=== PATIENT | female | born 1970 | race American Indian/Alaskan Native ===

== ENCOUNTER 2019-04-16 09:50 | Outpatient (CLI) | payer BC | END 2019-04-16 09:51 | disposition home or self-care (01) | LOC: ECHO 09:50 | PROVIDERS: ATTEND Internal Medicine Cardiovascular Disease | DX: R94.31 Abnormal electrocardiogram [ECG] [EKG] (principal); I10 Essential (primary) hypertension | CPT/HCPCS: 93306 ==

== ENCOUNTER 2019-05-23 06:30 | Day surgery (SDC) | payer BC ==
[2019-05-23] MEDS ORDERED: SODIUM CHLORIDE 0.9% 500 ML 500 ML IV SCH (07:00)
[2019-05-23] MEDS ORDERED: ASPIRIN EC 325 MG TAB PO NR (07:00)
[2019-05-23 07:50] LABS: Basophils % (Auto) 0.5 % (0.0-1.8); Eosinophils # (Auto) 0.2 K/mm3 (0.0-0.4); Eosinophils % (Auto) 3.8 % (0.0-4.3); Hemoglobin 12.4 gm/dl (10.1-14.3); Lymphocytes # (Auto) 1.2 K/mm3 (1.2-5.4); Lymphocytes % (Auto) 25.2 % (13.4-35.0); Mean Corpuscular HGB Conc 34 % (30-34); Mean Corpuscular Volume 91 fl (79-97); Monocytes # (Auto) 0.3 K/mm3 (0.0-0.8); Platelet Count 223 K/mm3 (140-440); Red Blood Count 4.06 M/mm3 (3.65-5.03); Red Cell Distribution Width 14.4 % (13.2-15.2)
[2019-05-23 07:57] LABS: INR 1.01 (0.87-1.13)
[2019-05-23 08:00] LABS: BUN/Creatinine Ratio 27; Blood Urea Nitrogen 16 mg/dL (7-17); Calcium 9.1 mg/dL (8.4-10.2); Hemolysis Index 21
[2019-05-23] MEDS ORDERED: fentaNYL 100 MCG/2 ML INJ IV NR (08:34)
[2019-05-23] MEDS ORDERED: MIDAZOLAM 5 MG/5 ML INJ MDV IV NR (08:34)
[2019-05-23] MEDS ORDERED: BENZOCAINE 20% TOP SPRAY 0.5 ML UNIT DOSE MM NR (09:00)
[2019-05-23] MEDS ORDERED: HEPARIN/NS 5000 UNIT/500ML 1,000 ML IR ONE (09:43)
[2019-05-23] MEDS: fentaNYL 100 MCG/2 ML INJ ONE ×2 (10:43→10:53)
[2019-05-23] MEDS: MIDAZOLAM 2 MG/2 ML INJ ONE ×3 (10:43→10:57)
[2019-05-23] MEDS ORDERED: MIDAZOLAM 2 MG/2 ML INJ ONE ×2 (10:46→10:51)
[2019-05-23] MEDS: LIDOCAINE (2%) 20 MG/1 ML VIAL 20 ML MDV INFILTRATI ONE ×2 (11:05→11:28)
[2019-05-23] MEDS: NITROGLYCERIN SYRINGE 3 ML ONE ×2 (11:05→11:31)
[2019-05-23] MEDS: HEPARIN 10,000 UNITS/10 ML VIAL ONE ×2 (11:06→11:31)
[2019-05-23] MEDS: VERAPAMIL 5 MG/2 ML INJ ONE ×2 (11:06→11:31)
[2019-05-23] MEDS ORDERED: fentaNYL 100 MCG/2 ML INJ ONE (11:06)
--- NOTE | 2019-05-23 12:58 | Cardiac Catherization Report ---
ATTENDING PHYSICIAN: Guillermo Carmona MD. PROCEDURES: 1. Left heart catheterization. 2. Pullback pressure across the left ventricular outflow tract. 3. Right and left coronary angiography. REASON FOR PROCEDURE: The patient is a 49-year-old female with a history of hypertrophic cardiomyopathy with echocardiogram showing presence of systolic anterior motion of the mitral valve and a peak gradient of approximately 34 mmHg on echocardiogram. The patient was subsequently brought for cardiac catheterization for further evaluation of the LVOT gradient. COMPLICATIONS: None. ESTIMATED BLOOD LOSS: Less than 30 mL. ESTIMATED CONTRAST USED: 80 mL. PROCEDURE IN DETAIL: The patient was brought to the cardiac catheterization lab in the usual fasting state. The patient was prepped and draped in the usual sterile fashion. A 2 mL of 1% lidocaine was injected around the right radial artery and a 6-Icelandic sheath was placed via a modified Seldinger technique. Next, [place] catheter was advanced over the wire across the aortic valve into the left atria. Left ventricular pressures were measured. Left ventriculogram was performed via hand injection. Next, [place] catheter was removed over the wire and replaced with a multipurpose catheter. Next, pressure measurements were taken in the body of the left ventricle, the left ventricular outflow tract, and the aorta to determine presence of a gradient over the left ventricular outflow tract. Next, the multipurpose catheter was removed over the wire and a JR4 catheter was advanced over the wire and engaged into the right coronary artery. Angiography was performed in multiple views. The catheter was then removed over the wire and an EBU 3.0 guide catheter was advanced over the wire and engaged into the left main coronary artery. The angiography was performed in multiple views. The wire and catheter were subsequently then removed. RESULTS: Left ventriculogram shows an ejection fraction at 50% with no significant wall motion abnormalities. The end-diastolic pressure measured at 33 mmHg. The gradient across the left ventricular outflow tract was measured at 48 mmHg at a heart rate of 75. Gradient at peak inspiration was 36.1 mmHg. The left main coronary artery is a large caliber vessel that bifurcates into left anterior descending and left main coronary arteries. The left main coronary artery shows no significant disease. The left anterior descending coronary artery is a large caliber vessel that extends to the distal apex. The left anterior descending coronary artery shows no significant disease. The left circumflex coronary artery is a moderate caliber nondominant vessel that shows no significant disease. The right coronary artery is a large caliber dominant vessel that shows luminal irregularities throughout without significant stenosis. CONCLUSIONS: 1. Left ventricular outflow tract shows a [id number] gradient of 48 mmHg and inspiratory peak gradient of 36.1 mmHg at a heart rate of 75. 2. Right and left coronary arteries show no significant disease. 3. Left ventricular function shows a normal ejection fraction of approximately 50%. RECOMMENDATIONS: The patient is to follow up with Dr. Oviedo in the [facility]. The patient is to continue current medical therapy. We will continue to monitor for a development of symptoms secondary to hypertrophic cardiomyopathy. Should patient develop symptoms, then would consider further intervention. JOB# [id number] /DAYLIN
[2019-05-23] MEDS ORDERED: SODIUM CHLORIDE 0.9% 1000 ML 1,000 ML IV SCH (13:00)
--- NOTE | 2019-05-23 13:35 | Discharge Summary ---
Short Stay Discharge Plan Activity: advance as tolerated Weight Bearing Status: Full Weight Bearing Diet: low fat, low cholesterol, low salt Wound: keep clean and dry Follow up with: CHELSY PAPPAS MD [Primary Care Provider] - 7 Days ASIF OCHOA MD [Staff Physician] - 7 Days Forms: [facility]C Instructions, Work/School Excuse Out Patient, Work/School Release Form
[2019-05-23 14:50] VITALS: BP 121/72
== END 2019-05-23 15:15 | disposition home or self-care (01) ==
LOC: CATHLABREC 06:30 → EDSTATUS 07:30 → CATHLABREC 15:15
PROVIDERS: ATTEND Internal Medicine Cardiovascular Disease
DX: I42.8 Other cardiomyopathies (principal); I10 Essential (primary) hypertension; I38 Endocarditis, valve unspecified; R94.31 Abnormal electrocardiogram [ECG] [EKG]; E78.00 Pure hypercholesterolemia, unspecified; Z79.899 Other long term (current) drug therapy; Z98.51 Tubal ligation status; Z80.8 Family history of malignant neoplasm of other organs or systems; Z79.01 Long term (current) use of anticoagulants; Z98.890 Other specified postprocedural states; Z82.49 Family history of ischemic heart disease and other diseases of the circulatory system
CPT/HCPCS: 36415; 80048; 85025; 85610; 85730; 93005; 93010; 93312; 93320; 93325; 93458; 99156; 99157; C1887; C1894; J1644; J2250; J3010; J7040; Q9967